=== PATIENT | male | born 1960 | race African-American/Black ===

== ENCOUNTER 2017-05-16 13:00 | Inpatient (IN) | payer MEDICARE, MEDICAID ==
[~2017-05-16] VITALS: Ht 180.3 cm; Wt 154.2 kg
[2017-05-16] MEDS ORDERED: ASPIRIN 81MG TABLET PO STA (14:01)
[2017-05-16 14:21] LABS: HEMATOCRIT. 41.5 % (42.0-52.0); HEMOGLOBIN. 13.5 g/dL (14.0-18.0); LYMPHOCYTES % 19.4 % (20.0-50.0); MEAN CORPUSCULAR HEMOGLOBIN 25.3 pg (28.0-32.0); MEAN CORPUSCULAR VOLUME 78.2 fL (80.0-94.0); MEAN PLATELET VOLUME 8.7 fl (7.4-10.4); MONOCYTES % 8.1 % (2.0-8.0); NEUTROPHILS % 70.5 % (40.0-76.0); PLATELET 208 x1000/uL (130-400); RED BLOOD CELL COUNT 5.32 mill/uL (4.7-6.1); RED CELL DISTRIBUTION WIDTH 16.1 % (11.6-14.6)
[2017-05-16 14:33] LABS: CARBON DIOXIDE 30 mEq/L (21-32); CHLORIDE 101 mEq/L (98-107)
[2017-05-16 14:37] LABS: PARTIAL THROMBOPLASTIN TIME 31.9 sec (23.4-31.0); PROTHROMBIN TIME 10.4 sec (9.4-11.6)
[2017-05-16 14:38] LABS: TROPONIN I < 0.02 ng/mL (0.00-0.04)
[2017-05-16] MEDS ORDERED: NITROGLYCERIN OINT 1GM/INCH UDPKT TD ONE (15:15)
[2017-05-16] MEDS ORDERED: IPRATROPIUM/ALBUTEROL 0.5-3(2.5)MG/3ML NEB INH PRN (17:00)
[2017-05-16] MEDS ORDERED: DOCUSATE SODIUM 100MG CAPSULE PO PRN (17:00)
[2017-05-16] MEDS ORDERED: ONDANSETRON HCL 4MG/2ML VIAL IV PRN (17:00)
[2017-05-16] MEDS ORDERED: HYDROMORPHONE HCL/PF 2MG/ML CPJ IV PRN (17:00)
[2017-05-16] MEDS ORDERED: HYDROCODONE/ACETAMINOPHEN 5/325MG TABLET PO PRN (17:00)
[2017-05-16] MEDS ORDERED: ACETAMINOPHEN 325MG TABLET PO PRN (17:00)
[2017-05-16 21:00] VITALS: BP 144/83
[2017-05-16] MEDS: ENOXAPARIN 40MG/0.4ML SYR SUBCUT SCH (21:31)
[2017-05-16] MEDS ORDERED: DEXTROSE 50% WATER 50ML SYRINGE IV PRN ×2 (22:00→23:00)
[2017-05-16] MEDS ORDERED: INSULIN LISPRO 100 UNITS/ML SUBCUT NR ×2 (23:00)
[2017-05-16 23:05] VITALS: BP 144/83
[2017-05-16 23:29] LABS: CREATINE KINASE 248 IU/L (39-308); TROPONIN I < 0.02 ng/mL (0.00-0.04)
[2017-05-17] VITALS: BP 107/51
[2017-05-17] MEDS ORDERED: CHOL100044 PO (02:05)
[2017-05-17] MEDS ORDERED: LOSA100T14 PO (02:05)
[2017-05-17] MEDS ORDERED: METO-396 PO (02:05)
[2017-05-17] MEDS ORDERED: INSU100I22 SQ (02:05)
[2017-05-17] MEDS ORDERED: NOVOLOG SUBCUT (02:05)
[2017-05-17] MEDS ORDERED: AMLO10TA80 PO (02:05)
[2017-05-17] MEDS ORDERED: GLIM4TAB2 PO (02:05)
[2017-05-17] MEDS ORDERED: SULF1TAB48 PO (02:05)
[2017-05-17] MEDS ORDERED: ATOR20TA65 PO (02:05)
[2017-05-17] MEDS ORDERED: METF10002 PO (02:05)
[2017-05-17 04:00] VITALS: BP 106/53
[2017-05-17] MEDS: BLOOD SUGAR DIAGNOSTIC STRIP TEST SCH ×4 (06:23→20:44)
[2017-05-17] MEDS: INSULIN LISPRO 100 UNITS/ML SUBCUT SCH ×4 (06:52→21:14)
[2017-05-17] MEDS ORDERED: BLOOD SUGAR DIAGNOSTIC STRIP TEST SCH (07:10)
[2017-05-17 07:50] LABS: BASOPHILS % 0.7 % (0.0-2.0); EOSINOPHILS % 2.1 % (0.0-5.0); HEMATOCRIT. 38.8 % (42.0-52.0); HEMOGLOBIN. 12.5 g/dL (14.0-18.0); LYMPHOCYTES % 17.4 % (20.0-50.0); MEAN CORPUSCULAR HEMOGLOBIN 25.3 pg (28.0-32.0); MEAN CORPUSCULAR VOLUME 78.3 fL (80.0-94.0); MEAN PLATELET VOLUME 9.2 fl (7.4-10.4); MONOCYTES % 9.4 % (2.0-8.0); NEUTROPHILS % 70.4 % (40.0-76.0); PLATELET 193 x1000/uL (130-400); RED BLOOD CELL COUNT 4.95 mill/uL (4.7-6.1); RED CELL DISTRIBUTION WIDTH 16.1 % (11.6-14.6)
[2017-05-17 08:00] VITALS: BP 124/78
[2017-05-17 08:18] LABS: CARBON DIOXIDE 31 mEq/L (21-32); CHLORIDE 101 mEq/L (98-107); CREATINE KINASE 210 IU/L (39-308); HDL CHOLESTEROL 32 mg/dL (40-59); LDL CHOLESTEROL 59 mg/dL (5-100); TROPONIN I < 0.02 ng/mL (0.00-0.04)
[2017-05-17] MEDS: ASPIRIN 81MG EC TABLET PO SCH (09:18)
[2017-05-17] MEDS: ENOXAPARIN 40MG/0.4ML SYR SUBCUT SCH ×2 (09:18→20:42)
[2017-05-17] MEDS: AMLODIPINE 10MG TABLET PO SCH (09:18)
[2017-05-17] MEDS ORDERED: REGADENOSON 0.4 MG/5 ML IV ONE ×2 (10:30→12:05)
[2017-05-17 11:55] VITALS: BP 142/84
[2017-05-17 15:48] VITALS: BP 137/80
[2017-05-17 20:00] VITALS: BP 129/72
[2017-05-17] MEDS ORDERED: ATORVASTATIN CALCIUM 10MG TABLET PO SCH (21:00)
[2017-05-18] VITALS: BP 146/75
[2017-05-18 04:00] VITALS: BP 138/78
[2017-05-18] MEDS: INSULIN LISPRO 100 UNITS/ML SUBCUT SCH (06:39)
[2017-05-18] MEDS: BLOOD SUGAR DIAGNOSTIC STRIP TEST SCH (06:40)
[2017-05-18 08:00] VITALS: BP 156/88
[2017-05-18 08:10] LABS: BASOPHILS % 0.6 % (0.0-2.0); EOSINOPHILS % 1.8 % (0.0-5.0); HEMATOCRIT. 41.8 % (42.0-52.0); HEMOGLOBIN. 13.5 g/dL (14.0-18.0); LYMPHOCYTES % 17.3 % (20.0-50.0); MEAN CORPUSCULAR HEMOGLOBIN 25.2 pg (28.0-32.0); MEAN CORPUSCULAR VOLUME 77.9 fL (80.0-94.0); MEAN PLATELET VOLUME 8.9 fl (7.4-10.4); MONOCYTES % 9.7 % (2.0-8.0); NEUTROPHILS % 70.6 % (40.0-76.0); PLATELET 195 x1000/uL (130-400); RED BLOOD CELL COUNT 5.37 mill/uL (4.7-6.1)
[2017-05-18 08:13] LABS: CARBON DIOXIDE 28 mEq/L (21-32); CHLORIDE 104 mEq/L (98-107); TROPONIN I < 0.02 ng/mL (0.00-0.04)
[2017-05-18] MEDS: ASPIRIN 81MG EC TABLET PO SCH (09:07)
[2017-05-18] MEDS: AMLODIPINE 10MG TABLET PO SCH (09:07)
[2017-05-18] MEDS: ENOXAPARIN 40MG/0.4ML SYR SUBCUT SCH (09:07)
[2017-05-18 10:48] VITALS: BP 146/88
[2017-05-18 12:00] VITALS: BP 141/76
== END 2017-05-18 12:25 | disposition home or self-care (01) | DRG 206 ==
LOC: ER 14:40 → EDBEDREQ 15:05 → EDBEDREQTM 15:05 → ENRESERV 18:57 → 8WST 20:48
PROVIDERS: ADMIT Hospitalist; ATTEND Hospitalist
DX: M94.0 Chondrocostal junction syndrome [Tietze] (principal); E11.65 Type 2 diabetes mellitus with hyperglycemia; I11.9 Hypertensive heart disease without heart failure; Z68.42 Body mass index [BMI] 45.0-49.9, adult; E66.09 Other obesity due to excess calories; I16.0 Hypertensive urgency; R63.4 Abnormal weight loss; I45.81 Long QT syndrome; E78.00 Pure hypercholesterolemia, unspecified; E78.1 Pure hyperglyceridemia; E78.5 Hyperlipidemia, unspecified; Z79.4 Long term (current) use of insulin; Z79.82 Long term (current) use of aspirin; Z87.891 Personal history of nicotine dependence; Z79.84 Long term (current) use of oral hypoglycemic drugs; Z79.899 Other long term (current) drug therapy
CPT/HCPCS: 36415; 71010; 78452; 80048; 80053; 80061; 82550; 82962; 83036; 83690; 83880; 84443; 84484; 85025; 85610; 85730; 93005; 93017; 93306; 93970; 99285; A9500; J1650; J1815; J2785